=== PATIENT | male | born 1975 | race Caucasian/White ===

== ENCOUNTER 2021-04-13 01:22 | Inpatient (IN) | payer OTHER, SELFPAY ==
[~2021-04-13] VITALS: Ht 165.1 cm; Wt 88.0 kg
[2021-04-13 01:30] VITALS: BP_SYST 135
[2021-04-13] MEDS ORDERED: NS 1000 ML IV.SOLN IV ONE (02:00)
[2021-04-13] MEDS ORDERED: cefTRIAXone 1 GM IVPB PREMIX 50 ML IV ONE (02:00)
[2021-04-13 02:28] LABS: BASOPHILS % (AUTO) 0.1 % (0.0-2.0); EOSINOPHILS % (AUTO) 0.1 % (0.0-4.0); HEMATOCRIT 39.7 % (36-54); HEMOGLOBIN 13.3 g/dL (14.0-18.0); LYMPHOCYTES # (AUTO) 0.5 K/uL (1.0-5.5); LYMPHOCYTES % (AUTO) 7.6 % (20.5-51.5); MEAN CORPUSCULAR HEMOGLOBIN 28 pg (27-31); MEAN CORPUSCULAR HGB CONC 34 % (32-36); MEAN CORPUSCULAR VOLUME 83 fL (79.0-98.0); MONOCYTES # (AUTO) 0.5 K/uL (0.0-1.0); MONOCYTES % (AUTO) 7.1 % (1.7-9.3); NEUTROPHILS # (AUTO) 5.5 K/uL (1.8-7.7); NEUTROPHILS % (AUTO) 85.1 % (40.0-70.0); PLATELET COUNT (AUTO) 212 K/uL (130-430); RED BLOOD CELL COUNT(AUTO) 4.76 MIL/uL (4.2-6.2); WHITE BLOOD COUNT (AUTO) 6.4 K/uL (4.8-10.8)
[2021-04-13 02:39] LABS: CALCIUM 8.2 mg/dL (8.4-11.0); CREATININE 1.01 mg/dL (0.55-1.30); POTASSIUM 4.2 mmol/L (3.5-5.1)
[2021-04-13 02:48] LABS: ALBUMIN 3.2 g/dL (3.4-4.8); TOTAL BILIRUBIN 0.3 mg/dL (0.0-1.0)
[2021-04-13] MEDS ORDERED: DEXAMETHASONE SOD PHOSPHATE 10 MG/ML VIAL IVP ONE (03:00)
[2021-04-13] MEDS ORDERED: ALBUTEROL SULFATE 0.083% 2.5 MG/3 ML VIAL.NEB INH ONE ×2 (03:00→03:02)
[2021-04-13] MEDS ORDERED: IPRATROPIUM BROM 0.5 MG/2.5 ML VIAL.NEB (ATROVENT) INH ONE (03:00)
[2021-04-13 04:35] LABS: BILIRUBIN,URINE NEGATIVE (NEGATIVE); BLOOD, URINE NEGATIVE (NEGATIVE); CLARITY/URINE CLEAR (CLEAR); COLOR,URINE YELLOW (YELLOW); GLUCOSE,URINE NEGATIVE (NEGATIVE); KETONES,URINE 1+ (NEGATIVE); LEUKOCYTE ESTERASE ,URINE NEGATIVE (NEGATIVE); NITRITE, URINE NEGATIVE (NEGATIVE); PH,URINE 6.5 (5.0-8.0); PROTEIN URINE NEGATIVE (NEGATIVE); UROBILINOGEN,URINE 0.2 (0.2-1.0)
[2021-04-13] MEDS ORDERED: PROMETHAZINE-DM 6.25 MG-15 MG/5 ML UDC PO PRN (11:30)
[2021-04-13] MEDS ORDERED: LORazepam 2 MG/ML VIAL IVP PRN (12:00)
[2021-04-13] MEDS ORDERED: BARICITINIB -Non-Formulary 2 MG TABLET PO SCH (12:00)
[2021-04-13] MEDS ORDERED: cloNIDine HCL 0.1 MG TABLET PO PRN (12:00)
[2021-04-13] MEDS: AZITHROMYCIN 500 MG in NS 250 ML IV SCH (13:49)
[2021-04-13] MEDS ORDERED: CHOLECALCIFEROL (VITAMIN D3) 2,000 UNIT TABLET PO ONE (14:00)
[2021-04-13] MEDS ORDERED: THIAMINE HCL 100 MG in NS 50 ML IV ONE (14:00)
[2021-04-13] MEDS ORDERED: FOLIC ACID 1 MG TABLET PO ONE (14:00)
[2021-04-13] MEDS ORDERED: MULTIVITAMINS TAB 1 TABLET PO ONE (14:00)
[2021-04-13] MEDS ORDERED: MAGNESIUM OXIDE 400 MG TABLET PO ONE (14:00)
[2021-04-13] MEDS ORDERED: ASCORBIC ACID 500 MG TABLET PO ONE (14:00)
[2021-04-13] MEDS: ALBUTEROL MDI INHALATION 8 GM INH INH SCH (15:00)
[2021-04-13 21:30] VITALS: BP_SYST 129
[2021-04-14 04:00] VITALS: BP_SYST 122
[2021-04-14 07:37] LABS: BASOPHILS % (AUTO) 0.1 % (0.0-2.0); HEMATOCRIT 37.9 % (36-54); HEMOGLOBIN 13.1 g/dL (14.0-18.0); LYMPHOCYTES # (AUTO) 0.8 K/uL (1.0-5.5); LYMPHOCYTES % (AUTO) 7.9 % (20.5-51.5); MEAN CORPUSCULAR HEMOGLOBIN 28 pg (27-31); MEAN CORPUSCULAR HGB CONC 35 % (32-36); MEAN CORPUSCULAR VOLUME 81 fL (79.0-98.0); MONOCYTES # (AUTO) 0.6 K/uL (0.0-1.0); MONOCYTES % (AUTO) 6.7 % (1.7-9.3); NEUTROPHILS # (AUTO) 8.2 K/uL (1.8-7.7); NEUTROPHILS % (AUTO) 85.3 % (40.0-70.0); PLATELET COUNT (AUTO) 306 K/uL (130-430); RED BLOOD CELL COUNT(AUTO) 4.67 MIL/uL (4.2-6.2); RED CELL DISTRIBUTION WIDTH 13.2 % (9.0-15.0); WHITE BLOOD COUNT (AUTO) 9.6 K/uL (4.8-10.8)
[2021-04-14 07:51] LABS: CALCIUM 8.5 mg/dL (8.4-11.0); CREATININE 0.86 mg/dL (0.55-1.30); POTASSIUM 4.5 mmol/L (3.5-5.1)
[2021-04-14 08:00] LABS: ALBUMIN 2.9 g/dL (3.4-4.8); TOTAL BILIRUBIN 0.3 mg/dL (0.0-1.0)
[2021-04-14 08:05] VITALS: BP_SYST 126
[2021-04-14] MEDS: MULTIVITAMINS TAB 1 TABLET PO SCH ×2 (08:51→20:59)
[2021-04-14] MEDS: THIAMINE HCL 100 MG TABLET PO SCH (08:51)
[2021-04-14] MEDS: ASCORBIC ACID 500 MG TABLET PO SCH ×2 (08:51→20:59)
[2021-04-14] MEDS: CHOLECALCIFEROL (VITAMIN D3) 2,000 UNIT TABLET PO SCH (08:52)
[2021-04-14] MEDS: FOLIC ACID 1 MG TABLET PO SCH (08:52)
[2021-04-14] MEDS: MAGNESIUM OXIDE 400 MG TABLET PO SCH ×2 (08:53→20:59)
[2021-04-14] MEDS ORDERED: APIXABAN 2.5 MG TABLET PO SCH (09:00)
[2021-04-14 09:03] LABS: PROTHROMBIN TIME 10.3 SECS (9.5-12.5)
[2021-04-14 12:05] VITALS: BP_SYST 108
[2021-04-14 12:35] LABS: C-REACTIVE PROTEIN QUANT 12.3 mg/dL (0-0.5)
[2021-04-14] MEDS: AZITHROMYCIN 500 MG in NS 250 ML IV SCH (14:16)
[2021-04-14 18:00] VITALS: BP_SYST 112
[2021-04-14 20:00] VITALS: BP_SYST 112
[2021-04-14] MEDS: APIXABAN 2.5 MG TABLET PO SCH (21:07)
[2021-04-14] MEDS: ALBUTEROL MDI INHALATION 8 GM INH INH SCH (21:10)
[2021-04-15] VITALS: BP_SYST 103
[2021-04-15] MEDS: DEXAMETHASONE SOD PHOSPHATE 10 MG/ML VIAL IVP SCH (00:21)
[2021-04-15] MEDS: cefTRIAXone 1 GM in D5W 50 ML IV SCH (00:22)
[2021-04-15 04:00] VITALS: BP_SYST 105
[2021-04-15 08:20] VITALS: BP_SYST 109
[2021-04-15] MEDS: THIAMINE HCL 100 MG TABLET PO SCH (09:04)
[2021-04-15] MEDS: MAGNESIUM OXIDE 400 MG TABLET PO SCH ×2 (09:04→21:14)
[2021-04-15] MEDS: ASCORBIC ACID 500 MG TABLET PO SCH ×2 (09:04→21:14)
[2021-04-15] MEDS: FOLIC ACID 1 MG TABLET PO SCH (09:05)
[2021-04-15] MEDS: CHOLECALCIFEROL (VITAMIN D3) 2,000 UNIT TABLET PO SCH (09:05)
[2021-04-15] MEDS: MULTIVITAMINS TAB 1 TABLET PO SCH ×2 (09:05→21:14)
[2021-04-15] MEDS: APIXABAN 2.5 MG TABLET PO SCH ×2 (09:06→21:15)
[2021-04-15 09:33] LABS: CALCIUM 8.7 mg/dL (8.4-11.0); CREATININE 1.04 mg/dL (0.55-1.30); POTASSIUM 4.4 mmol/L (3.5-5.1); TOTAL BILIRUBIN 0.4 mg/dL (0.0-1.0)
[2021-04-15 09:34] LABS: HEMATOCRIT 39.8 % (36-54); HEMOGLOBIN 13.6 g/dL (14.0-18.0); LYMPHOCYTES # (AUTO) 0.9 K/uL (1.0-5.5); LYMPHOCYTES % (AUTO) 12.8 % (20.5-51.5); MEAN CORPUSCULAR HEMOGLOBIN 28 pg (27-31); MEAN CORPUSCULAR HGB CONC 34 % (32-36); MEAN CORPUSCULAR VOLUME 82 fL (79.0-98.0); MONOCYTES # (AUTO) 0.3 K/uL (0.0-1.0); MONOCYTES % (AUTO) 3.6 % (1.7-9.3); NEUTROPHILS # (AUTO) 5.9 K/uL (1.8-7.7); NEUTROPHILS % (AUTO) 83.6 % (40.0-70.0); PLATELET COUNT (AUTO) 376 K/uL (130-430); RED BLOOD CELL COUNT(AUTO) 4.84 MIL/uL (4.2-6.2)
[2021-04-15 12:05] VITALS: BP_SYST 124
[2021-04-15] MEDS: AZITHROMYCIN 500 MG in NS 250 ML IV SCH (14:28)
[2021-04-15 17:53] VITALS: BP_SYST 118
[2021-04-15 20:00] VITALS: BP_SYST 134
[2021-04-16] VITALS: BP_SYST 128
[2021-04-16] MEDS: DEXAMETHASONE SOD PHOSPHATE 10 MG/ML VIAL IVP SCH (00:06)
[2021-04-16] MEDS: cefTRIAXone 1 GM in D5W 50 ML IV SCH (00:06)
[2021-04-16 04:00] VITALS: BP_SYST 128
[2021-04-16 08:00] VITALS: BP_SYST 133
[2021-04-16 08:22] LABS: BASOPHILS % (AUTO) 0.1 % (0.0-2.0); HEMATOCRIT 38.6 % (36-54); LYMPHOCYTES # (AUTO) 0.9 K/uL (1.0-5.5); LYMPHOCYTES % (AUTO) 10.6 % (20.5-51.5); MEAN CORPUSCULAR HEMOGLOBIN 28 pg (27-31); MEAN CORPUSCULAR HGB CONC 34 % (32-36); MEAN CORPUSCULAR VOLUME 83 fL (79.0-98.0); MONOCYTES # (AUTO) 0.6 K/uL (0.0-1.0); MONOCYTES % (AUTO) 7.3 % (1.7-9.3); NEUTROPHILS # (AUTO) 6.6 K/uL (1.8-7.7); PLATELET COUNT (AUTO) 444 K/uL (130-430); RED BLOOD CELL COUNT(AUTO) 4.66 MIL/uL (4.2-6.2); RED CELL DISTRIBUTION WIDTH 13.5 % (9.0-15.0); WHITE BLOOD COUNT (AUTO) 8.1 K/uL (4.8-10.8)
[2021-04-16 08:41] LABS: ALBUMIN 2.9 g/dL (3.4-4.8); CALCIUM 8.4 mg/dL (8.4-11.0); CREATININE 0.77 mg/dL (0.55-1.30); POTASSIUM 4.6 mmol/L (3.5-5.1); TOTAL BILIRUBIN 0.3 mg/dL (0.0-1.0)
[2021-04-16] MEDS: APIXABAN 2.5 MG TABLET PO SCH ×2 (09:34→21:33)
[2021-04-16] MEDS: MAGNESIUM OXIDE 400 MG TABLET PO SCH ×2 (09:34→21:32)
[2021-04-16] MEDS: CHOLECALCIFEROL (VITAMIN D3) 2,000 UNIT TABLET PO SCH (09:35)
[2021-04-16] MEDS: MULTIVITAMINS TAB 1 TABLET PO SCH ×2 (09:35→21:32)
[2021-04-16] MEDS: THIAMINE HCL 100 MG TABLET PO SCH (09:35)
[2021-04-16] MEDS: FOLIC ACID 1 MG TABLET PO SCH (09:35)
[2021-04-16] MEDS: ASCORBIC ACID 500 MG TABLET PO SCH ×2 (09:35→21:32)
[2021-04-16 12:00] VITALS: BP_SYST 120
[2021-04-16] MEDS: AZITHROMYCIN 500 MG in NS 250 ML IV SCH (15:30)
[2021-04-16 16:00] VITALS: BP_SYST 122
[2021-04-16] MEDS ORDERED: ASC500 PO (17:45)
[2021-04-16] MEDS ORDERED: MAGN400T10 PO (17:45)
[2021-04-16] MEDS ORDERED: MULT400T13 PO (17:45)
[2021-04-16] MEDS ORDERED: FOLI-43 PO (17:45)
[2021-04-16] MEDS ORDERED: Zinc Sulfate PO (17:45)
[2021-04-16] MEDS ORDERED: VITD2000 PO (17:45)
[2021-04-16] MEDS ORDERED: APIX2.5T PO (17:45)
[2021-04-16] MEDS ORDERED: DEC1 PO (17:50)
[2021-04-16 20:00] VITALS: BP_SYST 130
[2021-04-17] VITALS: BP_SYST 128
[2021-04-17] MEDS: cefTRIAXone 1 GM in D5W 50 ML IV SCH (00:14)
[2021-04-17 04:00] VITALS: BP_SYST 128
[2021-04-17] MEDS: ALBUTEROL MDI INHALATION 8 GM INH INH SCH ×2 (06:42→11:57)
[2021-04-17 08:00] VITALS: BP_SYST 126
[2021-04-17] MEDS ORDERED: DEXAMETHASONE 1 MG TABLET (DECADRON) PO SCH (09:00)
[2021-04-17] MEDS: APIXABAN 2.5 MG TABLET PO SCH (09:25)
[2021-04-17] MEDS: THIAMINE HCL 100 MG TABLET PO SCH (09:27)
[2021-04-17] MEDS: FOLIC ACID 1 MG TABLET PO SCH (09:27)
[2021-04-17] MEDS: ASCORBIC ACID 500 MG TABLET PO SCH (09:27)
[2021-04-17] MEDS: MULTIVITAMINS TAB 1 TABLET PO SCH (09:27)
[2021-04-17] MEDS: CHOLECALCIFEROL (VITAMIN D3) 2,000 UNIT TABLET PO SCH (09:28)
[2021-04-17] MEDS: MAGNESIUM OXIDE 400 MG TABLET PO SCH (09:28)
[2021-04-17 09:43] LABS: CALCIUM 8.5 mg/dL (8.4-11.0); CREATININE 0.95 mg/dL (0.55-1.30); POTASSIUM 3.7 mmol/L (3.5-5.1); TOTAL BILIRUBIN 0.2 mg/dL (0.0-1.0)
[2021-04-17 12:53] VITALS: BP_SYST 122
== END 2021-04-17 13:45 | disposition home or self-care (01) | DRG 177 ==
LOC: SED 01:22 → STU 05:30
PROVIDERS: ADMIT Internal Medicine; ATTEND Internal Medicine
PROC: XW033E5 Introduction of Remdesivir Anti-infective into Peripheral Vein, Percutaneous Approach, New Technology Group 5 (ICD-10-PCS; principal; 2021-04-13)
DX: U07.1 COVID-19 (principal); J96.01 Acute respiratory failure with hypoxia; J12.82 Pneumonia due to coronavirus disease 2019; R65.10 Systemic inflammatory response syndrome (SIRS) of non-infectious origin without acute organ dysfunction; E66.9 Obesity, unspecified; Z68.32 Body mass index [BMI] 32.0-32.9, adult
CPT/HCPCS: 36415; 71045; 80053; 81003; 82728; 82803-TC; 83605; 83615; 83880; 84484; 85025; 85379; 85384; 85610-TC; 85730-TC; 86140; 87040; 87086; 93005; 94640; 96361; 96365; 96375; 99285; G0378; J0456; J0696; J1100; J3411; J7050; J7060; J7613